=== PATIENT | female | born 1960 | race Caucasian/White ===

== ENCOUNTER 2018-01-03 19:11 | Emergency (ER) | payer OTHER | END 2018-01-03 23:50 | disposition home or self-care (01) | LOC: E/R 19:11 | DX: J02.0 Streptococcal pharyngitis (principal); I10 Essential (primary) hypertension; Z79.4 Long term (current) use of insulin | CPT/HCPCS: 71045; 87400; 93005; 99285-25 ==

== ENCOUNTER 2018-03-07 10:53 | Inpatient (IN) | payer OTHER ==
[2018-03-07 12:04] LABS: ADD MAN DIFF? NO
[2018-03-07 12:12] LABS: BASOPHILS % 0.4 % (0.0-2.0); EOSINOPHILS # 0.4 10^3/ul (0.0-0.5); EOSINOPHILS % 5.3 % (0.0-7.0); HEMATOCRIT 31.3 % (37.0-47.0); HEMOGLOBIN 10.1 g/dl (12.0-16.0); LYMPHOCYTES # 2.3 10^3/ul (0.8-2.9); LYMPHOCYTES % 28.6 % (15.0-51.0); MEAN CORPUSCULAR HEMOGLOBIN 31.4 pg (29.0-33.0); MEAN CORPUSCULAR HGB CONC 32.3 g/dl (32.0-37.0); MEAN CORPUSCULAR VOLUME 97.2 fl (82.0-101.0); MEAN PLATELET VOLUME 10.8 fl (7.4-10.4); MONOCYTE # 0.6 10^3/ul (0.3-0.9); NEUTROPHIL # 4.8 10^3/ul (1.6-7.5); NEUTROPHILS % 58.6 % (39.0-77.0); PLATELET COUNT 225 10^3/UL (140-415); RED BLOOD COUNT 3.22 10^6/ul (4.20-5.40); RED CELL DISTRIBUTION WIDTH 14.1 % (11.5-14.5)
[2018-03-07 12:12] LABS: WHITE BLOOD COUNT 8.2 10^3/ul (4.8-10.8)
[2018-03-07] MEDS ORDERED: NITROGLYCERIN 50 MG/D5W (PMX) 250 ML (12:18)
[2018-03-07 12:25] LABS: INR 0.99; PROTIME 13.2 Sec (11.9-14.9)
[2018-03-07 12:26] LABS: PARTIAL THROMBOPLASTIN TIME 32.5 Sec (25.0-35.0)
[2018-03-07 12:29] LABS: ANION GAP 25 (8-16); BLOOD UREA NITROGEN 75 mg/dl (7-20); CARBON DIOXIDE 24 mmol/L (21-31); CHLORIDE 99 mmol/L (97-110); CREATININE 11.01 mg/dl (0.44-1.00); GLUCOSE 204 mg/dl (70-220); SODIUM 141 mmol/L (135-144)
[2018-03-07 12:35] LABS: POTASSIUM 7.1 mmol/L (3.5-5.1)
[2018-03-07] MEDS: NITROGLYCERIN 50 MG/D5W (PMX) 250 ML IV (12:39)
[2018-03-07 12:48] LABS: TROPONIN-I 0.127 ng/ml (0.00-0.12)
[2018-03-07] MEDS: ALBUTEROL 0.5% (NEB) 2.5 MG/0.5 ML AMP INH (12:50)
[2018-03-07] MEDS: DEXTROSE 50% 50 ML SYRINGE IV (12:52)
[2018-03-07] MEDS: NA POLYST SULFON 15 GM/60 ML BTL PO (12:52)
[2018-03-07] MEDS: INSULIN REGULAR, HUMAN 100 UNIT/1 ML 3ML VIAL IVP (12:54)
[2018-03-07] MEDS: ASPIRIN 81 MG TAB PO (12:55)
[2018-03-07 12:57] LABS: B-TYPE NATRIURETIC PEPTIDE 53300 PG/ML (0-125)
[2018-03-07] MEDS ORDERED: DEXTROSE 50% 50 ML SYRINGE IV ×3 (13:00→17:00)
[2018-03-07] MEDS ORDERED: NITROPRUSSIDE 50 MG in DEXTROSE 5% 248 ML IV (15:00)
[2018-03-07] MEDS ORDERED: NACL 0.9% 3 ML SYG IV (15:00)
[2018-03-07] MEDS ORDERED: HYDROCODONE/APAP (5/325) TAB PO (15:00)
[2018-03-07] MEDS ORDERED: NA PHOSPHATE/BIPHOS 133 ML ENEMA PR (15:00)
[2018-03-07] MEDS ORDERED: NITROGLYCERIN (SL) 0.4 MG TAB SL (15:00)
[2018-03-07] MEDS ORDERED: DOCUSATE SODIUM 100 MG CAP PO (15:00)
[2018-03-07] MEDS ORDERED: LORAZEPAM 2 MG INJ IV (15:00)
[2018-03-07] MEDS ORDERED: ALBUTEROL/IPRATROPIUM (NEB) 3 ML AMP HHN (15:00)
[2018-03-07] MEDS ORDERED: morphine 2 MG INJ IV (15:00)
[2018-03-07] MEDS ORDERED: MAGNESIUM HYDROXIDE 30ML CUP PO (15:00)
[2018-03-07 16:21] LABS: LACTIC ACID 1.7 mmol/L (0.5-2.0)
[2018-03-07 16:25] LABS: CREATINE KINASE 141 IU/L (23-200)
[2018-03-07 16:26] LABS: INR 1.01; PROTIME 13.4 Sec (11.9-14.9)
[2018-03-07 16:27] LABS: PARTIAL THROMBOPLASTIN TIME 27.3 Sec (25.0-35.0)
[2018-03-07 16:39] LABS: CK INDEX 1.3; CK-MB 1.79 ng/ml (0.0-2.4); TROPONIN-I 0.128 ng/ml (0.00-0.12)
[2018-03-07 16:44] LABS: FREE T4 (FREE THYROXINE) 1.35 ng/dl (0.64-1.79)
[2018-03-07] MEDS ORDERED: GLUCOSE GEL 15 GRAM TUBE PO ×2 (17:00)
[2018-03-07] MEDS ORDERED: GLUCAGON 1 MG INJ IM (17:00)
[2018-03-07] MEDS ORDERED: GLUCOSE GEL 15 GRAM TUBE BUCCAL (17:00)
[2018-03-07] MEDS: INSULIN ASPART [NOVOLOG] 3 ML PEN SC ×2 (17:23→21:00)
[2018-03-07] MEDS: CALCIUM ACETATE 667 MG CAP PO (17:25)
[2018-03-07] MEDS: ATORVASTATIN 10 MG TAB PO (21:31)
[2018-03-07] MEDS: HEPARIN 5,000 UNIT/0.5 ML VIAL SC (21:34)
[2018-03-07 21:48] LABS: CREATINE KINASE 147 IU/L (23-200)
[2018-03-07 22:00] LABS: CK INDEX 1.3; CK-MB 1.94 ng/ml (0.0-2.4)
[2018-03-07] MEDS: hydrALAzine 20 MG INJ IV (22:38)
[2018-03-08] MEDS: ACETAMINOPHEN 325 MG TAB PO ×3 (00:52→21:23)
[2018-03-08] MEDS: INSULIN ASPART [NOVOLOG] 3 ML PEN SC ×6 (00:55→20:36)
[2018-03-08] MEDS: ACCU-CHEK XX (01:42)
[2018-03-08] MEDS: NITROGLYCERIN 50 MG/D5W (PMX) 250 ML IV ×3 (01:49→12:32)
[2018-03-08 05:54] LABS: ADD MAN DIFF? NO
[2018-03-08 06:06] LABS: BASOPHILS % 0.4 % (0.0-2.0); EOSINOPHILS # 0.3 10^3/ul (0.0-0.5); EOSINOPHILS % 3.5 % (0.0-7.0); HEMATOCRIT 31.8 % (37.0-47.0); HEMOGLOBIN 10.3 g/dl (12.0-16.0); LYMPHOCYTES # 2.1 10^3/ul (0.8-2.9); MEAN CORPUSCULAR HEMOGLOBIN 30.7 pg (29.0-33.0); MEAN CORPUSCULAR HGB CONC 32.4 g/dl (32.0-37.0); MEAN CORPUSCULAR VOLUME 94.6 fl (82.0-101.0); MEAN PLATELET VOLUME 10.8 fl (7.4-10.4); MONOCYTE # 0.6 10^3/ul (0.3-0.9); MONOCYTES % 7.2 % (0.0-11.0); NEUTROPHILS % 62.6 % (39.0-77.0); PLATELET COUNT 269 10^3/UL (140-415); RED BLOOD COUNT 3.36 10^6/ul (4.20-5.40); RED CELL DISTRIBUTION WIDTH 14.2 % (11.5-14.5)
[2018-03-08 06:06] LABS: WHITE BLOOD COUNT 7.9 10^3/ul (4.8-10.8)
[2018-03-08 06:53] LABS: CHOLESTEROL 148 mg/dl (100-200)
[2018-03-08 06:53] LABS: CHOL/HDL RATIO 3.3 RATIO; HDL CHOLESTEROL 44 mg/dl (37-92); LDL CHOLESTEROL,CALCULATED 47 mg/dl; TRIGLYCERIDES 287 mg/dl (0-149)
[2018-03-08 06:56] LABS: ANION GAP 19 (8-16); BLOOD UREA NITROGEN 45 mg/dl (7-20); CALCIUM 8.6 mg/dl (8.4-10.2); CARBON DIOXIDE 27 mmol/L (21-31); CHLORIDE 96 mmol/L (97-110); CREATININE 8.05 mg/dl (0.44-1.00); GLUCOSE 199 mg/dl (70-220); MAGNESIUM 2.1 mg/dl (1.7-2.5); PHOSPHORUS 5.8 mg/dl (2.5-4.9); POTASSIUM 4.7 mmol/L (3.5-5.1); SODIUM 137 mmol/L (135-144)
[2018-03-08 07:15] LABS: THYROID STIMULATING HORMONE 0.488 MIU/L (0.465-4.680)
[2018-03-08 07:26] LABS: HEMOGLOBIN A1C 6.7 % (0-5.9)
[2018-03-08] MEDS ORDERED: FAMOTIDINE 20 MG INJ (07:52)
[2018-03-08] MEDS: CALCIUM ACETATE 667 MG CAP PO ×3 (07:57→17:27)
[2018-03-08] MEDS: FOLIC ACID 1 MG TAB PO (08:09)
[2018-03-08] MEDS: CHOLECALCIFEROL 1,000 UNIT TAB PO (08:10)
[2018-03-08] MEDS: FAMOTIDINE 20 MG TAB PO (08:13)
[2018-03-08] MEDS: HEPARIN 5,000 UNIT/0.5 ML VIAL SC ×2 (08:22→20:35)
[2018-03-08] MEDS: ONDANSETRON 4 MG INJ IV (11:22)
[2018-03-08] MEDS: AMLODIPINE 5 MG TAB PO (11:30)
[2018-03-08] MEDS: BENAZEPRIL 40 MG TAB PO (12:31)
[2018-03-08] MEDS ORDERED: ALBUMIN HUMAN 25% 50 ML IV (13:30)
[2018-03-08] MEDS: ATORVASTATIN 10 MG TAB PO (20:26)
[2018-03-08] MEDS: INSULIN GLARGINE [LANtus] 3 ML PEN SC (20:35)
[2018-03-09] MEDS: INSULIN ASPART [NOVOLOG] 3 ML PEN SC ×6 (01:00→20:56)
[2018-03-09] MEDS: ACCU-CHEK XX (01:59)
[2018-03-09 06:01] LABS: ADD MAN DIFF? NO
[2018-03-09] MEDS: hydrALAzine 20 MG INJ IV ×2 (06:17→14:04)
[2018-03-09 06:30] LABS: BASOPHILS % 0.3 % (0.0-2.0); EOSINOPHILS # 0.3 10^3/ul (0.0-0.5); EOSINOPHILS % 4.3 % (0.0-7.0); HEMOGLOBIN 10.4 g/dl (12.0-16.0); LYMPHOCYTES # 2.5 10^3/ul (0.8-2.9); LYMPHOCYTES % 32.3 % (15.0-51.0); MEAN CORPUSCULAR HEMOGLOBIN 30.4 pg (29.0-33.0); MEAN CORPUSCULAR HGB CONC 31.5 g/dl (32.0-37.0); MEAN CORPUSCULAR VOLUME 96.5 fl (82.0-101.0); MEAN PLATELET VOLUME 11.6 fl (7.4-10.4); MONOCYTE # 0.8 10^3/ul (0.3-0.9); MONOCYTES % 10.7 % (0.0-11.0); NEUTROPHIL # 4.1 10^3/ul (1.6-7.5); NEUTROPHILS % 52.1 % (39.0-77.0); RED BLOOD COUNT 3.42 10^6/ul (4.20-5.40)
[2018-03-09 06:30] LABS: WHITE BLOOD COUNT 7.9 10^3/ul (4.8-10.8)
[2018-03-09 06:32] LABS: ANION GAP 19 (8-16); BLOOD UREA NITROGEN 57 mg/dl (7-20); CARBON DIOXIDE 28 mmol/L (21-31); CHLORIDE 96 mmol/L (97-110); CREATININE 9.69 mg/dl (0.44-1.00); GLUCOSE 80 mg/dl (70-220); POTASSIUM 5.1 mmol/L (3.5-5.1); SODIUM 138 mmol/L (135-144)
[2018-03-09 06:39] LABS: PLATELET COUNT 184 10^3/UL (140-415); POSITIVE DIFF @See below
[2018-03-09] MEDS: FOLIC ACID 1 MG TAB PO (08:05)
[2018-03-09] MEDS: CALCIUM ACETATE 667 MG CAP PO ×3 (08:05→17:44)
[2018-03-09] MEDS: CHOLECALCIFEROL 1,000 UNIT TAB PO (08:05)
[2018-03-09] MEDS: FAMOTIDINE 20 MG TAB PO (08:06)
[2018-03-09] MEDS: HEPARIN 5,000 UNIT/0.5 ML VIAL SC ×2 (08:15→20:57)
[2018-03-09] MEDS: ACETAMINOPHEN 325 MG TAB PO (08:42)
[2018-03-09] MEDS: BENAZEPRIL 40 MG TAB PO (08:42)
[2018-03-09] MEDS: INSULIN GLARGINE [LANtus] 3 ML PEN SC (20:56)
[2018-03-09] MEDS: ATORVASTATIN 10 MG TAB PO (21:00)
[2018-03-10] MEDS: hydrALAzine 20 MG INJ IV ×2 (00:27→06:11)
[2018-03-10] MEDS: INSULIN ASPART [NOVOLOG] 3 ML PEN SC ×3 (00:34→08:24)
[2018-03-10] MEDS: ACCU-CHEK XX (02:00)
[2018-03-10 06:16] LABS: ADD MAN DIFF? NO
[2018-03-10 06:29] LABS: BASOPHILS % 0.5 % (0.0-2.0); EOSINOPHILS # 0.3 10^3/ul (0.0-0.5); EOSINOPHILS % 4.8 % (0.0-7.0); HEMATOCRIT 34.3 % (37.0-47.0); LYMPHOCYTES # 1.9 10^3/ul (0.8-2.9); LYMPHOCYTES % 28.1 % (15.0-51.0); MEAN CORPUSCULAR HEMOGLOBIN 30.5 pg (29.0-33.0); MEAN CORPUSCULAR HGB CONC 32.1 g/dl (32.0-37.0); MEAN PLATELET VOLUME 10.8 fl (7.4-10.4); MONOCYTE # 0.6 10^3/ul (0.3-0.9); MONOCYTES % 9.2 % (0.0-11.0); NEUTROPHIL # 3.8 10^3/ul (1.6-7.5); NEUTROPHILS % 57.1 % (39.0-77.0); PLATELET COUNT 264 10^3/UL (140-415); RED BLOOD COUNT 3.61 10^6/ul (4.20-5.40); RED CELL DISTRIBUTION WIDTH 13.8 % (11.5-14.5)
[2018-03-10 06:29] LABS: WHITE BLOOD COUNT 6.6 10^3/ul (4.8-10.8)
[2018-03-10 07:26] LABS: ANION GAP 19 (8-16); BLOOD UREA NITROGEN 31 mg/dl (7-20); CALCIUM 9.2 mg/dl (8.4-10.2); CARBON DIOXIDE 30 mmol/L (21-31); CHLORIDE 96 mmol/L (97-110); CREATININE 6.99 mg/dl (0.44-1.00); GLUCOSE 164 mg/dl (70-220); POTASSIUM 4.4 mmol/L (3.5-5.1); SODIUM 141 mmol/L (135-144)
[2018-03-10] MEDS: BENAZEPRIL 40 MG TAB PO (08:15)
[2018-03-10] MEDS: CHOLECALCIFEROL 1,000 UNIT TAB PO (08:15)
[2018-03-10] MEDS: FAMOTIDINE 20 MG TAB PO (08:16)
[2018-03-10] MEDS: CALCIUM ACETATE 667 MG CAP PO ×2 (08:16→12:00)
[2018-03-10] MEDS: FOLIC ACID 1 MG TAB PO (08:16)
[2018-03-10] MEDS: HEPARIN 5,000 UNIT/0.5 ML VIAL SC (08:20)
== END 2018-03-10 12:30 | disposition home or self-care (01) | DRG 291 ==
LOC: ICU 15:50 → E/R 10:53
PROC: 5A1D70Z Performance of Urinary Filtration, Intermittent, Less than 6 Hours Per Day (ICD-10-PCS; principal; 2018-03-07)
DX: I13.2 Hypertensive heart and chronic kidney disease with heart failure and with stage 5 chronic kidney disease, or end stage renal disease (principal); N18.6 End stage renal disease; J96.00 Acute respiratory failure, unspecified whether with hypoxia or hypercapnia; I50.43 Acute on chronic combined systolic (congestive) and diastolic (congestive) heart failure; I16.0 Hypertensive urgency; E87.5 Hyperkalemia; E11.22 Type 2 diabetes mellitus with diabetic chronic kidney disease; E78.00 Pure hypercholesterolemia, unspecified; Z99.2 Dependence on renal dialysis; Z90.49 Acquired absence of other specified parts of digestive tract; Z91.15 Patient's noncompliance with renal dialysis
CPT/HCPCS: 36415; 71045; 80048; 80061; 82550; 82553; 82962; 83036; 83605; 83735; 83880; 84100; 84439; 84443; 84484; 85025; 85610; 85730; 87040; 87081; 90935; 92610; 93005; 93306; 93970; 94664; 96372; 96374; 96375; 97110; 97116; 97162; 97530; 99291-25